=== PATIENT | female | born 1955 | race Hispanic/Latino ===

== ENCOUNTER 2017-03-18 20:18 | Observation (INO) | payer OTHER ==
[2017-03-18 20:24] VITALS: TEMP 98.2
--- NOTE | 2017-03-18 21:20 | ED PDOC ---
Upper Extremity Pain/Injury Time Seen by Provider: 03/18/17 20:42 Chief Complaint (Nursing): Upper Extremity Problem/Injury Chief Complaint (Provider): Right Shoulder Pain/Injury History Per: Patient, EMS History/Exam Limitations: no limitations Onset/Duration Of Symptoms: Hrs (just prior to arrival) Current Symptoms Are (Timing): Still Present Exacerbating Factor(s): Movement Additional Complaint(s): Jackie Montana is a 61 year old female, with no pertinent past medical history, who presents to the ED on 03/18/17, via EMS, for the evaluation of right shoulder pain after having injured it during a mechanical fall just prior to arrival in which she had tripped over a wire at home and hit the shoulder against a nearby cabinet. Pain, further described as worse with movement of the affected arm, reportedly radiates distally, though patient denies any head trauma or additional injuries. PMD: non CPH Past Medical History Reviewed: Historical Data, Nursing Documentation, Vital Signs Vital Signs: Last Vital Signs Temp 98.2 F 03/18/17 20:19 Pulse 75 03/18/17 20:19 Resp 18 03/18/17 20:19 BP 124/63 03/18/17 20:19 Pulse Ox 124 H 03/18/17 20:19 - Medical History PMH: No Chronic Diseases - Surgical History Surgical History: No Surg Hx - Family History Family History: States: Unknown Family Hx - Allergies Allergies/Adverse Reactions: Allergies Allergy/AdvReac Type Severity Reaction Status Date / Time No Known Allergies Allergy Verified 03/18/17 20:23 Review of Systems Musculoskeletal: Positive for: Shoulder Pain (right) Physical Exam - Reviewed Nursing Documentation Reviewed: Yes Vital Signs Reviewed: Yes - Physical Exam Appears: Positive for: Non-toxic, Uncomfortable Skin: Positive for: Warm, Dry Eye Exam: Positive for: EOMI Cardiovascular/Chest: Positive for: Regular Rate, Rhythm. Negative for: Tachycardia Respiratory: Positive for: Normal Breath Sounds. Negative for: Wheezing Pulses-Radial (R): 2+ Gastrointestinal/Abdominal: Positive for: Soft. Negative for: Tenderness Extremity: Positive for: Tenderness (right shoulder/upper arm), Deformity ( noted to right upper arm). Negative for: Normal ROM (limited ROM of right shoulder secondary to pain; FROM of right elbow, wrist and of all fingers of right hand), Swelling Neurologic/Psych: Positive for: Alert, Oriented - ECG O2 Sat by Pulse Oximetry: 124 Medical Decision Making Medical Decision Makin:42 Initial Impression: shoulder injury, dislocation vs fracture Code Ortho procedures initiated. Initial Plan: * XR Right Shoulder * Morphine 4mg IVP * Reevaluation * * Xray right shoulder: anterior shoulder dislocation with humeral head avulsion fracture vs glenoid fracture * Xray after reduction: no dislocation. glenoid fracture. * * 0600 Pt is alert and awake. No pain. Stable for discharge with ortho follow up given. * NO indications for emergent orthopedic evaluation. Scribe Attestation: Documented by Carolina Mooney, acting as a scribe for Carlos Jackman MD. Provider Scribe Attestation: All medical record entries made by the Scribe were at my direction and personally dictated by me. I have reviewed the chart and agree that the record accurately reflects my personal performance of the history, physical exam, medical decision making, and the department course for this patient. I have also personally directed, reviewed, and agree with the discharge instructions and disposition. Procedures - Time-Out Type of Procedure: Reduction of dislocation Site of Procedure: right shoulder Correct Patient: Yes Correct Procedure: Yes Correct Site Marked: Yes X-Ray Marked: No Medication Recon: Yes Physician Name: Augustina Presley Joint Reduction Joint Reduction Site: shoulder (R) Conscious Sedation: No (analgesis with dilaudid IV) Reduction Attempts: 2 Pre-Procedure NV Exam: Yes Post Joint Reduction Film: joint reduced Progress: Tolerated well. No complications. NV exam postreduction normal. Immobilizer applied. Disposition - Clinical Impression Clinical Impression: Anterior shoulder dislocation, Shoulder fracture, right - Patient ED Disposition Is Patient to be Admitted: No Doctor Will See Patient In The: Office Counseled Patient/Family Regarding: Studies Performed, Diagnosis, Need For Followup - Disposition Disposition: Routine/Home Disposition Time: 06:15 Condition: GOOD - POA Present On Arrival: Falls Or Trauma
[2017-03-19] MEDS ORDERED: Propofol 10 mg/ml Inj (20 ML) IV ONE (00:27)
[2017-03-19 00:40] VITALS: RESP 16
[2017-03-19] MEDS ORDERED: Propofol 10 mg/ml Inj (20 ML) ONE (00:42)
[2017-03-19 07:06] VITALS: BP 137/68; PULSE 83
--- NOTE | 2017-03-19 07:08 | RAD ---
PROCEDURE: Radiographs of the Right Shoulder HISTORY: right shoulder pain COMPARISON: No prior. FINDINGS: BONES: Normal. No fracture. JOINTS: Anterior-inferior humeral head dislocation with glenoid fracture. SOFT TISSUES: Normal. OTHER FINDINGS: None. IMPRESSION: Anterior-inferior humeral head dislocation with glenoid fracture.
--- NOTE | 2017-03-19 07:34 | RAD ---
PROCEDURE: Radiographs of the Right Shoulder HISTORY: post reduction COMPARISON: No prior. FINDINGS: BONES: Normal. No fracture. JOINTS: Normal. Glenohumeral and acromioclavicular joints preserved. No osteoarthritis. SOFT TISSUES: Normal. OTHER FINDINGS: None. IMPRESSION: Normal radiographs of the right shoulder.
[2017-03-19 20:03] VITALS: O2SAT 124
== END 2017-03-20 07:05 | disposition home or self-care (01) ==
LOC: H.ER 20:18 → H.EROBSV 03-19 01:00
PROVIDERS: ADMIT Emergency Medicine; ATTEND Emergency Medicine
DX: S43.084A Other dislocation of right shoulder joint, initial encounter (principal); W01.190A Fall on same level from slipping, tripping and stumbling with subsequent striking against furniture, initial encounter; Y93.9 Activity, unspecified; Y92.009 Unspecified place in unspecified non-institutional (private) residence as the place of occurrence of the external cause